=== PATIENT | male | born 1965 | race Caucasian/White ===

== ENCOUNTER → 2022-10-20 | Outpatient (REF) | payer BC ==
[2022-10-20 18:49] LABS: PERCENT SATURATION 9.4 % (19.7-50.0)
[2022-10-20 18:52] LABS: FERRITIN 5.6 NG/ML (10.5-307.3)
== END ==
LOC: M LAB REF 16:34
PROVIDERS: ATTEND Internal Medicine
DX: D64.9 Anemia, unspecified (principal)

== ENCOUNTER → 2022-12-03 | Outpatient (CLI) | payer BC | LOC: M WUC 09:00 | PROVIDERS: ATTEND Physician Assistant Medical | DX: M25.521 Pain in right elbow (principal) ==

== ENCOUNTER → 2023-01-21 | Outpatient (REF) | payer BC ==
[2023-01-21 13:41] LABS: PERCENT SATURATION 37.6 % (19.7-50.0)
== END ==
LOC: M LAB REF 12:45
PROVIDERS: ATTEND Internal Medicine
DX: D50.9 Iron deficiency anemia, unspecified (principal)